=== PATIENT | female | born 1985 | race Caucasian/White ===

== ENCOUNTER 2016-10-22 10:51 | Day surgery (SDC) | payer OTHER ==
[2016-10-22 13:35] LABS: CSF GLUCOSE 49 mg/dl (40-75)
[2016-10-22 13:46] LABS: CSF APPEARANCE CLEAR (CLEAR); CSF COLOR COLORLESS (COLORLESS); CSF RBC CT 0 cmm (0); CSF TUBE NUMBER CSF TUBE 2; CSF WBC CT <1 cmm (0-10)
== END 2016-10-22 16:00 ==
LOC: RADSP 10:51 → SHSB 10:57
PROVIDERS: Psychiatry & Neurology Neurology
DX: R20.9 Unspecified disturbances of skin sensation (principal)